=== PATIENT | female | born 1965 | race Two or more races ===

== ENCOUNTER 2016-07-14 10:41 | Emergency (ER) | payer OTHER ==
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
== END 2016-07-14 12:36 | disposition home or self-care (01) ==
LOC: CFTX 10:41
DX: S93.402A Sprain of unspecified ligament of left ankle, initial encounter (principal); S40.022A Contusion of left upper arm, initial encounter; I10 Essential (primary) hypertension; Z91.041 Radiographic dye allergy status; V89.2XXA Person injured in unspecified motor-vehicle accident, traffic, initial encounter; Y92.410 Unspecified street and highway as the place of occurrence of the external cause
CPT/HCPCS: 72040; 73060; 73610; 99284